=== PATIENT | male | born 1950 | race Caucasian/White ===

== ENCOUNTER → 2016-07-24 09:39 | Outpatient (CLI) | payer MEDICARE, OTHER | END | disposition home or self-care (01) | LOC: D.MRI 09:39 | DX: M54.16 Radiculopathy, lumbar region (principal) ==

== ENCOUNTER → 2018-05-06 12:47 | Outpatient (CLI) | payer MEDICARE, OTHER | END | disposition home or self-care (01) | LOC: D.MRI 12:47 | DX: M54.5 Low back pain (principal) ==

== ENCOUNTER → 2018-05-16 13:13 | Outpatient (CLI) | payer MEDICARE, OTHER | END | disposition home or self-care (01) | LOC: D.MRI 13:13 | DX: M25.551 Pain in right hip (principal) ==

== ENCOUNTER → 2018-06-16 08:08 | Outpatient (CLI) | payer MEDICARE, OTHER | END | disposition home or self-care (01) | LOC: D.CT 06-14 13:30 | DX: J32.9 Chronic sinusitis, unspecified (principal) ==

== ENCOUNTER → 2020-02-12 10:19 | Outpatient (CLI) | payer MEDICARE, OTHER | END | disposition home or self-care (01) | LOC: D.MRI 10:19 | PROVIDERS: ATTEND Family Medicine | DX: M25.552 Pain in left hip (principal) ==

== ENCOUNTER → 2020-10-07 09:37 | Outpatient (CLI) | payer MEDICARE, OTHER | END | disposition home or self-care (01) | LOC: D.MRI 09:37 | PROVIDERS: ATTEND Family Medicine | DX: R51.9 Headache, unspecified (principal) ==